=== PATIENT | male | born 1960 | race Caucasian/White ===

== ENCOUNTER → 2018-07-27 | Outpatient (CLI) | payer MEDICARE, MEDICAID ==
[~2018-07-27] MED LIST: ALBU8.5H4 INH; ASP81CT PO; CATHETER FLUSH 10 ML SYR IV PRN; CLOP75TA PO; HCT25T PO; LISI10TA PO; LORA-794 PO; MELO-195 PO; NITR0.4T12 SL; PREG150C PO; REGADENOSON 0.4 MG/5 ML SYR (LEXISCAN) IV ONE; SLMFT1E INH; SMV20T PO; TIOT18CA INH
--- NOTE | 2018-07-27 13:55 | STRESS TEST ---
DATE OF SERVICE: 07/27/2018 RESTING AND POST REGADENOSON TECHNETIUM-99M TETROFOSMIN SPECT CT IMAGING ORDERING PHYSICIAN: Dr. Nick. CLINICAL DIAGNOSIS: Coronary artery disease. Baseline images were carried out after an injection of 10.84 mCi technetium-99m Tetrofosmin. This was followed by 0.4 mg of Regadenoson and 31.9 mCi of technetium-99m Tetrofosmin for stress imaging. The electrocardiogram showed sinus rhythm at baseline. It did not change significantly with the Regadenoson infusion. The patient tolerated the procedure well. Review of images at rest and following stress does not indicate any significant perfusion defects consistent with significant myocardial ischemia or infarction. Gated images show well preserved global left ventricular systolic function without distinct regional wall motion abnormality. Left ventricular ejection fraction is calculated to be 39%, but it appears subjectively higher than that. Left ventricular end diastolic volume is 73 mL. TID is absent (1.09). CONCLUSIONS: 1. No evidence of significant myocardial ischemia or infarction on this study. 2. No significant regional wall motion abnormalities seen on this study. 3. A well preserved global left ventricular systolic function. Left ventricular ejection fraction is calculated to be 39%, but appears subjectively higher than that. Job ID: [id number] DocumentID: [id number] Dictated Date: 07/27/2018 13:38:13 Service Or Work Dispatcher Chief Date: 07/27/2018 13:55:04 Dictated By: GENNARO NICK MD, MA, FACP, FACC, MTDD
== END ==
LOC: CARD 07:14
PROVIDERS: ATTEND Internal Medicine Cardiovascular Disease
DX: I25.10 Atherosclerotic heart disease of native coronary artery without angina pectoris (principal); J43.8 Other emphysema; I77.89 Other specified disorders of arteries and arterioles; E78.5 Hyperlipidemia, unspecified; I10 Essential (primary) hypertension
CPT/HCPCS: 78452; 93017

== ENCOUNTER 2018-08-09 09:00 | Outpatient (CLI) | payer MEDICARE, MEDICAID ==
[~2018-08-09] VITALS: Ht 180.3 cm; Wt 104.3 kg
[~2018-08-09 09:00] MED LIST changes: -CATHETER FLUSH 10 ML SYR IV PRN; -REGADENOSON 0.4 MG/5 ML SYR (LEXISCAN) IV ONE
[2018-08-09] MEDS ORDERED: HYDR-3812 PO (09:22)
[2018-08-09] MEDS ORDERED: ESCI10TA PO (09:22)
[2018-08-09] MEDS ORDERED: ASPI-999 PO (09:22)
[2018-08-09] MEDS ORDERED: TAMS0.4C98 PO (09:22)
[2018-08-09] MEDS ORDERED: RT-ALBUINH IH (09:22)
[2018-08-09] MEDS ORDERED: MELO15TA39 PO (09:22)
[2018-08-09] MEDS ORDERED: NITR0.4T39 SL (09:22)
[2018-08-09] MEDS ORDERED: GBPN600T PO (09:22)
[2018-08-09] MEDS ORDERED: ATOR40TA70 PO (09:22)
[2018-08-09] MEDS ORDERED: FLUT9.9S NS (09:22)
[2018-08-09] MEDS ORDERED: DIAZ5TAB3 PO (09:22)
[2018-08-09] MEDS ORDERED: TIOT18CA2 IH (09:22)
== END 2018-08-09 09:29 ==
LOC: PREOP 09:00
PROVIDERS: ATTEND Surgery
DX: Z01.818 Encounter for other preprocedural examination (principal)

== ENCOUNTER 2018-08-13 06:06 | Day surgery (SDC) | payer MEDICARE, MEDICAID ==
[~2018-08-13] VITALS: Ht 180.3 cm; Wt 101.2 kg
[~2018-08-13 06:06] MED LIST changes: +ASPI-999 PO; +ATOR40TA70 PO; +DIAZ5TAB3 PO; +ESCI10TA PO; +FLUT9.9S NS; +GBPN600T PO; +HYDR-3812 PO; +MELO15TA39 PO; +NITR0.4T39 SL; +RT-ALBUINH IH; +TAMS0.4C98 PO; +TIOT18CA2 IH
[2018-08-13] MEDS ORDERED: ceFAZolin 2 GM IV Premixed 50 ML IV ONE (06:15)
[2018-08-13] MEDS ORDERED: CATHETER FLUSH 10 ML SYR IV PRN (06:30)
[2018-08-13 06:55] VITALS: BP 94/53
[2018-08-13] MEDS ORDERED: ONDANSETRON 4 MG/2 ML (SDV) Z0FRAN ONE (06:55)
[2018-08-13] MEDS ORDERED: proPOfol 200 MG/20 ML (DIPRIVAN) VIAL IV ONE (06:55)
[2018-08-13] MEDS ORDERED: ROCURONIUM 10 MG/ML 5 ML SYRINGE IV ONE ×2 (06:55→09:17)
[2018-08-13] MEDS ORDERED: SEVOFLURANE (ULTANE) 15 ML INHAL SOLN ONE ×4 (06:55→10:33)
[2018-08-13] MEDS ORDERED: DEXAMETHASONE 10 MG/ML (DECADRON) 1 ML VIAL ONE (06:55)
[2018-08-13] MEDS ORDERED: LIDOCAINE PF 2% 5 ML (XYLOCAINE) VIAL ONE (06:55)
[2018-08-13] MEDS ORDERED: MIDAZOLAM 2 MG/2 ML (VERSED) VIAL ONE (06:56)
[2018-08-13] MEDS ORDERED: fentaNYL INJECTION 100 MCG/2 ML AMP ONE ×2 (06:56→09:10)
[2018-08-13] MEDS ORDERED: MEPERIDINE (DEMEROL) INJ 50 MG/ML IVP ONE (07:00)
[2018-08-13] MEDS ORDERED: fentaNYL INJECTION 100 MCG/2 ML AMP IVP ONE (07:00)
[2018-08-13] MEDS ORDERED: ONDANSETRON 4 MG/2 ML (SDV) Z0FRAN IVP PRN ×2 (07:00→10:30)
[2018-08-13] MEDS ORDERED: morphine INJ 10 MG/ML 1ML (SYR OR VIAL) IVP ONE (07:00)
[2018-08-13] MEDS ORDERED: BUP/EPI 0.5% 1:200,000 (SENSORCAINE) 30 ML VIAL ONE (07:01)
[2018-08-13] MEDS: LACTATED RINGERS 1,000 ML IV PRN ×2 (07:02→09:30)
[2018-08-13 07:08] LABS: BASOPHILS % (AUTO) 1 % (0-10); EOSINOPHILS # (AUTO) 0.2 10^3/uL (0.0-0.3); EOSINOPHILS % (AUTO) 3 % (0-10); HEMATOCRIT 39 % (40-54); HEMOGLOBIN 12.8 G/DL (13.3-17.7); LYMPHOCYTES # (AUTO) 1.5 X 10^3 (1.0-4.0); LYMPHOCYTES % (AUTO) 25 % (12-44); MEAN CORPUSCULAR HEMOGLOBIN 28 PG (25-34); MEAN CORPUSCULAR HGB CONC 33 G/DL (32-36); MEAN CORPUSCULAR VOLUME 84 FL (80-99); MEAN PLATELET VOLUME 11.7 FL (7.4-10.4); MONOCYTES # (AUTO) 0.5 X 10^3 (0.0-1.0); MONOCYTES % (AUTO) 8 % (0-12); NEUTROPHILS # (AUTO) 3.8 X 10^3 (1.8-7.8); NEUTROPHILS % (AUTO) 63 % (42-75); PLATELET COUNT 136 10^3/uL (130-400); RED CELL DISTRIBUTION WIDTH 13.2 % (10.0-14.5)
--- NOTE | 2018-08-13 08:11 | Progress Note-Pre Operative ---
Pre-Operative Progress Note H&P Reviewed The H&P was reviewed, patient examined and no changes noted. Date Seen by Provider: Jul 16, 2018 Time Seen by Provider: 14:00 Date H&P Reviewed: Aug 13, 2018 Time H&P Reviewed: 08:11 Pre-Operative Diagnosis: Bilateral Inguinal Herniae PARTHA GAMBINO MD Aug 13, 2018 08:11
[2018-08-13] MEDS ORDERED: NEOSTIGMINE 1 MG/ML 5 ML SYRINGE ONE (08:50)
[2018-08-13] MEDS ORDERED: GLYCOPYRROLATE 0.2 MG/ML (ROBINUL) 2 ML VIAL ONE (08:50)
[2018-08-13] MEDS ORDERED: LABETALOL HCL 20 MG/4 ML VIAL ONE (09:14)
--- NOTE | 2018-08-13 10:22 | Operative Report ---
Operative Report Date of Procedure/Surgery Aug 13, 2018 Surgeon (s) PARTHA GAMBINO MD Commercial Coordinator (s): N/A Post-Operative Diagnosis Bilateral, direct inguinal herniae Procedure Performed Robotic assisted repair with mesh Description of Procedure Anesthesia Type: General Estimated blood loss (mL): Minimal Specimen(s) collected/removed None Description of the Procedure Indication for the procedures: This gentleman presented with symptomatic, bilateral inguinal herniae. He was offered repair using minimally invasive technique robotic assistance and mesh reinforcement. Informed consent was obtained after reviewing the details of surgery and increased morbidity due to his cardiac status. With specific reference to the surgery, complications of hematoma, infection of the mesh and recurrence of the hernia were discussed with him. Description of the procedures: He was placed supine on the operative table and general anesthesia induced. Ancef was administered intravenously as prophylaxis against sequential compression devices were placed around his legs, to minimize the risk of venous thrombosis. A Steven catheter was placed to decompress the bladder during surgery. It was removed at the end of the operation. Abdomen was prepared and draped in the usual sterile manner. Pneumoperitoneum was established using a Veress needle introduced over the supra-umbilical region. Intra-abdominal pressure was maintained at 15 mmHg, using carbon dioxide insufflation. A 12 mm trocar was placed and anatomy visualized using the high definition, 3-dimensional laparoscope, associated with da Sc[employer] Software system. Bilateral, direct inguinal herniae, containing extraperitoneal fat were identified. In addition, sigmoid colon was adherent to the apex of the hernia. Under direct view, I placed an 8 mm trocar over each side of the abdomen and the robotic system was docked in place. I began the dissection on the right side. Peritoneum was incised laterally, entering the preperitoneal space. Inferior epigastric vessels were carefully protected. Dissection was continued in a lateral to medial fashion identifying and delineating Andrew's ligament. Extra-peritoneal fat constituting the hernia was reduced out of the inguinal canal. There was no indirect sac. A pre -made, low-profile polypropylene mesh measuring 13 cm in length by 9 cm in width was chosen for reinforcement. It was secured to Andrew's ligament and the lateral abdominal musculature with 2-0 Vicryl sutures, using robotic assistance. On the left side, sigmoid colon was carefully without any iatrogenic injury. A similar dissection was performed and the extraperitoneal fat contained within the inguinal canal reduced completely. A blood mesh was used for reinforcement, being secured with 2-0 Vicryl sutures. Intra-abdominal pressure was then reduced to 9 mmHg, to allow reconstitution of the peritoneum without any tension. This was achieved using 20V LOC sutures with robotic assistance. Pneumoperitoneum was deflated and the trocars were removed. The fascia over the supraumbilical incision was closed using #1 Vicryl, in a continuous fashion. Skin incisions are closed using 4-0 Vicryl, in a subcuticular fashion. 0.5 percent Marcaine with epinephrine was infiltrated along the incisions, both preemptively and at the conclusion of the operation. He tolerated the procedure well, was extubated in the operating room and taken to the recovery room in a stable condition. Findings of the Procedure See operative report Allergies and Home Medications Allergies Coded Allergies: No Known Drug Allergies (Unverified , 08/13/18) Home Medications Albuterol Sulfate 1 Puff Puff, 2 PUFF IH Q4H PRN for WHEEZING, (Reported) 1 PUFF = 90 MCG Aspirin 81 Mg Tab.chew, 81 MG PO DAILY, (Reported) Atorvastatin Calcium 40 Mg Tablet, 40 MG PO HS, (Reported) Diazepam 5 Mg Tablet, 5 MG PO HS PRN for SLEEP, (Reported) Escitalopram Oxalate 10 Mg Tablet, 10 MG PO DAILY, (Reported) Fluticasone Propionate 9.9 Ml [place].susp, 2 SPRAY NS DAILY, (Reported) Gabapentin 600 Mg Tablet, 600 MG PO BID, (Reported) Hydrocodone/Acetaminophen 1 Each Tablet, 1-2 TAB PO Q6H PRN for PAIN-MILD TO MODERATE, (Reported) Meloxicam 15 Mg Tablet, 15 MG PO DAILY, (Reported) Nitroglycerin 0.4 Mg Tab.subl, 0.4 MG SL UD PRN for CHEST PAIN, (Reported) Tamsulosin HCl 0.4 Mg Cap, 0.4 MG PO DAILY, (Reported) Tiotropium [place] 1 Inh Aerp, 1 INH IH DAILY, (Reported) Patient Home Medication List Home Medication List Reviewed: Yes PARTHA GAMBINO MD Aug 13, 2018 10:22
[2018-08-13] MEDS ORDERED: ACHD5005 PO (10:26)
--- NOTE | 2018-08-13 10:27 | Discharge Inst-Simple/Standard ---
Discharge Inst-Standard Discharge Medications New, Converted or Re-Newed RX: RX on Chart Patient Instructions/Follow Up Plan of Care/Instructions/FU: Band-Aids off in a.m. Follow-up in 3 weeks Activity as Tolerated: No Goal: No lifting over 20 pounds Discharge Diet: No Restrictions PARTHA GAMBINO MD Aug 13, 2018 10:27
[2018-08-13] MEDS ORDERED: fentaNYL INJECTION 100 MCG/2 ML AMP IVP PRN (10:30)
[2018-08-13 11:15] VITALS: BP 115/76
--- NOTE | 2018-08-13 11:15 | NUR ---
CHELSEA HOFFMAN admitted to room 425-1, with an admitting diagnosis of ALEXANDRA HERNIA REPAIR, on 08/13/18 from [facility] via BED, accompanied by STAFF.CHELSEA HOFFMAN introduced to surroundings, call light, bed controls, phone, TV, temperature control, lights, meal times, smoking policy, visitor policy, side rail policy, bathrooms and showers. Patient Rights given to patient in the handbook.CHELSEA HOFFMAN verbalizes understanding that [facility] is not responsible for the loss or damage to any personal effects or valuables that are kept in the patients posession during their hospitalization. The following Patient Care Plans were discussed with the PT: Discharge Planning, PAIN CONTROL,IV THERAPY, and PROCEDURES. CHELSEA HOFFMAN verbalizes understanding of Interdisciplinary Patient Education. Patient and/or family were informed about the Rapid Response Team and its purpose.
--- NOTE | 2018-08-13 12:17 | Anesthesia-General Post-Op ---
General Patient Condition Mental Status/LOC: Same as Preop Cardiovascular: Satisfactory Nausea/Vomiting: Absent Respiratory: Satisfactory Pain: Controlled Complications: Absent Post Op Complications Complications None Follow Up Care/Instructions Patient Instructions None needed. Anesthesia/Patient Condition Patient Condition Patient is doing well, no complaints, stable vital signs, no apparent adverse anesthesia problems. No complications reported per nursing. ERIBERTO JORDAN CRNA Aug 13, 2018 12:17
[2018-08-13] MEDS: HYDROcodone/APAP 5 MG/325 MG (LORTAB) TAB PO PRN ×2 (12:35→16:13)
[2018-08-13] MEDS ORDERED: EPINEPHrine INJECTION 1 MG/ML AMP ONE (14:36)
[2018-08-13 16:35] VITALS: BP 115/76
--- NOTE | 2018-08-13 16:35 | NUR ---
CHELSEA HOFFMAN demonstrates understanding of discharge instructions and accurately returns instructions upon questioning. Copy of Post-Discharge Instructions given to PT. CHELSEA HOFFMAN is able to manage continuing needs after discharge. Patients belongings returned to PT. Patient discharged from [facility] on 08/13/18 at 1635. CHELSEA HOFFMAN left floor via W/C, accompanied by STAFF AND PER AUTO.
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
== END 2018-08-13 16:35 | disposition home or self-care (01) ==
LOC: SDC 06:06 → 4TH 11:20 → SDC 16:35
PROVIDERS: ATTEND Surgery
DX: K40.20 Bilateral inguinal hernia, without obstruction or gangrene, not specified as recurrent (principal); I25.10 Atherosclerotic heart disease of native coronary artery without angina pectoris; I42.9 Cardiomyopathy, unspecified; J44.9 Chronic obstructive pulmonary disease, unspecified; I10 Essential (primary) hypertension; E78.5 Hyperlipidemia, unspecified; Z79.82 Long term (current) use of aspirin; Z79.899 Other long term (current) drug therapy; Z95.5 Presence of coronary angioplasty implant and graft; Z87.891 Personal history of nicotine dependence
CPT/HCPCS: 36415; 85025; 87081; 94664

== ENCOUNTER 2019-11-08 10:56 | Outpatient (RCR) | payer MEDICARE, MEDICAID ==
[2019-08-30] MEDS: CATHETER FLUSH 10 ML SYR IV PRN (14:45)
[2019-08-30 14:50] VITALS: BP 131/87
[2019-10-11 13:45] VITALS: BP 112/75
[2019-10-11] MEDS: CATHETER FLUSH 10 ML SYR IV PRN (14:00)
[~2019-11-08] VITALS: Ht 182.9 cm
[~2019-11-08 10:56] MED LIST changes: +ACHD5005 PO; -DIAZ5TAB3 PO; +DIAZ5TAB49 PO; +HEParin (CENTRAL IV FLUSH) 500 UNIT/5 ML SYR IV ONE; +HEParin (CENTRAL IV FLUSH) 500 UNIT/5 ML SYR ONE; -HYDR-3812 PO; -TAMS0.4C98 PO; +TMSL.4C PO
[2019-11-08] MEDS ORDERED: HEParin (CENTRAL IV FLUSH) 500 UNIT/5 ML SYR ONE (10:58)
[2019-11-08] MEDS: CATHETER FLUSH 10 ML SYR IV PRN (11:10)
[2019-11-08 11:13] VITALS: BP 127/77
[2019-11-08] MEDS ORDERED: HEParin (CENTRAL IV FLUSH) 500 UNIT/5 ML SYR IV ONE (12:15)
== END 2019-11-28 | disposition home or self-care (01) ==
LOC: SDC 10:56
PROVIDERS: ATTEND Student in an Organized Health Care Education/Training Program
DX: Z45.2 Encounter for adjustment and management of vascular access device (principal)
CPT/HCPCS: 96523

== ENCOUNTER 2019-12-12 10:48 | Outpatient (RCR) | payer MEDICARE, MEDICAID ==
[~2019-12-12] VITALS: Ht 182.9 cm
[~2019-12-12 10:48] MED LIST changes: -HEParin (CENTRAL IV FLUSH) 500 UNIT/5 ML SYR IV ONE; -HEParin (CENTRAL IV FLUSH) 500 UNIT/5 ML SYR ONE
[2019-12-12] MEDS ORDERED: HEParin (CENTRAL IV FLUSH) 500 UNIT/5 ML SYR ONE (10:53)
[2019-12-12 11:13] VITALS: BP 123/77
[2019-12-12] MEDS ORDERED: CATHETER FLUSH 10 ML SYR IV SCH (11:30)
[2019-12-12] MEDS ORDERED: HEParin (CENTRAL IV FLUSH) 500 UNIT/5 ML SYR IV SCH (11:30)
== END 2020-03-11 | disposition home or self-care (01) ==
LOC: SDC 10:48
PROVIDERS: ATTEND Student in an Organized Health Care Education/Training Program
DX: Z45.2 Encounter for adjustment and management of vascular access device (principal)
CPT/HCPCS: 96523